=== PATIENT | female | born 1985 | race Caucasian/White ===

== ENCOUNTER 2022-02-01 20:40 | Inpatient (IN) | payer SELFPAY ==
[~2022-02-01] VITALS: Ht 170.2 cm; Wt 80.5 kg
[~2022-02-01 20:40] MED LIST: CLARITIN 1010 MG/TAB PO; CRANBERRY400 MG PO; INDERAL 10MG10 MG PO; LEVORA-28 30 MC1 TA1 PO; PRILOSEC 20MG20 MG PO; ZANTAC 150MG T150 MG PO; ZOLOFT 50MG50 MG PO
--- NOTE | 2022-02-01 20:45 | NUR ---
2044- PT PRESENTS TO LDR COMPLAINING OF LEAKING AMNIOTIC FLUID. AMBULATORY TO ROOM LR4, CHANGED INTO GOWN.
--- NOTE | 2022-02-01 20:53 | NUR ---
2052- EFM X2 APPLIED. PT REPORTS GUSH OF FLUID AT 1930, CLEAR. SHE ALSO REPORTS HER CONTRACTIONS INTENSIFIED AT THAT TIME. SHE DENIES VAGINAL BLEEDING AND REPORTS THAT SHE IS FEELING THE BABY MOVE. PLAN OF CARE FOR SROM CHECK DISCUSSED AND QUESTIONS ANSWERED. 2099- AMNITRACE POSITIVE FOR RUPTURE OF MEMBRANES. SVE BY THIS NURSE 0-/-3. DISCUSSED WITH PT THE PLAN FOR REPEAT AND QUESTIONS ANSWERED. 2109- NURSING ADMISSION HISTORY AND ASSESSMENT COMPLETED. 2128- DR ORNELAS CALLED CHARTED, ORDERS FOR ADMISSION AND PREOP SECTION. 2144- CONSENTS SIGNED. IV START TO LEFT HAND X3 ATTEMPTS, BLOOD DRAWN FOR LAB. IV FLUIDS INFUSING. 2148- FIONA TOVAR AT BEDSIDE FOR ANESTHESIA HISTORY. ABDOMINAL PREP COMPLETED. PT ALREADY REMOVED HAIR. 2154- DR ORNELAS AT BEDSIDE AND DISCUSSES PLAN OF CARE. SHE ANSWERS PT QUESTIONS AND PROVIDES REASSURANCE.
[2022-02-01] MEDS ORDERED: BUSPAR10 MG PO (21:26)
[2022-02-01] MEDS ORDERED: ZOLOFT 100MG100 MG PO (21:26)
[2022-02-01 22:03] LABS: BASO % 0.2 % (0.0-2.0); EOS # 0.1 K/mm3 (0.0-0.7); EOS % 0.7 % (0.0-4.0); GRAN # 10.8 K/mm3 (1.4-6.5); GRAN % 70.7 % (42.2-75.2); HEMOGLOBIN 10.4 g/dl (12.5-16.0); LYMPH # 3.2 K/mm3 (1.2-3.4); LYMPH % 20.9 % (20.0-51.0); MEAN CELL VOLUME 86 fl (80.0-100.0); MEAN CORPUSCULAR HEMOGLOBIN 30 pg (27-31); MEAN CORPUSCULAR HGB CONC 34 g/dl (33.0-37.0); MEAN PLATELET VOLUME 10.9 fl (7.4-10.4); MONO # 1.1 K/mm3 (0.1-0.6); PLATELET COUNT 253 K/mm3 (130-400); RED BLOOD COUNT 3.53 M/mm3 (4.10-5.30); REDCELL DISTRIBUTION WIDTH-CV 12.3 % (11.5-14.5)
[2022-02-01 22:04] LABS: HEMATOCRIT 30.4 % (37.0-47.0)
[2022-02-01 23:35] VITALS: BP 116/76; PULSE 92
[2022-02-01 23:40] VITALS: BP 115/77; PULSE 90
[2022-02-01 23:45] VITALS: BP 103/81; PULSE 106
[2022-02-01 23:50] VITALS: BP 107/83; PULSE 98
[2022-02-01 23:55] VITALS: BP 109/77; PULSE 106
[2022-02-02] VITALS (13 sets, daily range): BP systolic 100–130; BP diastolic 58–87; PULSE 71–106; TEMP 97.7–97.8
--- NOTE | 2022-02-02 00:20 | NUR ---
0020- PT TRANSFERRED TO ROOM 210 PER BED FROM PACU. , BABY, AND BELONGINGS WITH PT. PT ORIENTED TO ROOM AND CALL LIGHTS. RECOVERY STARTED. PT PROVIDED ORAL HYDRATION, SHE DENIES NAUSEA AT THIS TIME. DISCUSSED PLAN OF CARE FOR RECOVERY AND PAIN MEDICATIONS. PT VERBALIZES UNDERSTANDING.
--- NOTE | 2022-02-02 05:20 | NUR ---
0520- IV TO SALINE LOCK. PT ASSISTED TO AMBULATE TO BATHROOM. STEADY ON HER FEET WITHOUT DIZZINESS. PYLE CATHETER REMOVED WITHOUT DIFFICULTY. PT INSTRUCTED ON AND PERFORMS PERICARE. CLEAN GOWN, PAD, AND PANTIES PROVIDED. NORMAL LOCHIA DISCUSSED. PT ASSISTED BACK TO BED AND POSITIONED FOR COMFORT. PT DENIES FURTHER NEEDS AT THIS TIME.
[2022-02-02 07:00] LABS: ALBUMIN 2.3 gm/dL (3.5-5.0); BILIRUBIN,TOTAL 0.2 mg/dL (0.2-1.2); CALCIUM 8.5 mg/dL (8.4-10.2); CREATININE, serum 0.67 mg/dL (0.57-1.11); POTASSIUM 3.9 mmol/L (3.5-4.5); TOTAL PROTEIN 5.3 gm/dL (6.2-8.1)
[2022-02-02] MEDS ORDERED: PERCOCET 325 MG1 TA2 PO (09:07)
[2022-02-02] MEDS ORDERED: IBU800 M1 PO (09:07)
--- NOTE | 2022-02-02 10:02 | NUR ---
Initial visit; Patient thanked Tooling Manager for offering congratulations and God's blessings for the of her son. Tooling Manager thanked patient for choosing [facility].
--- NOTE | 2022-02-03 09:42 | NUR ---
Initial visit attempt; Family resting, Drafter Geological left card of congratulations and God's blessings for the of their son.
[2022-02-03 10:00] VITALS: BP 146/85; PULSE 67; TEMP 98.8
--- NOTE | 2022-02-03 11:33 | NUR ---
1040DISCHARGE INSTRUCTIONS REVIEWED WITH PATIENT. PATIENT VERBALIZED UNDERSTANDING. WILL NOTIFY NURSING STAFF WHEN READY TO LEAVE. 1120ALL PERSONAL BELONGINGS GATHERED FROM PATIENT ROOM. PATIENT LEFT AMBULATORY AND IN NO APPARENT DISTRESS. PATIENT ACCOMPANIED BY SPOUSE AND THIS RN.
== END 2022-02-03 11:20 | disposition home or self-care (01) | DRG 788 ==
LOC: LDRO 20:40 → OB 21:05 → LDR 21:05 → OB 02-02 00:20
PROVIDERS: Student in an Organized Health Care Education/Training Program; ADMIT Obstetrics & Gynecology
PROC: 10D00Z1 Extraction of Products of Conception, Low, Open Approach (ICD-10-PCS; principal; 2022-02-01)
PROC: 0HB7XZZ Excision of Abdomen Skin, External Approach (ICD-10-PCS; 2022-02-01)
DX: O34.211 Maternal care for low transverse scar from previous cesarean delivery (principal); O99.820 Streptococcus B carrier state complicating pregnancy; O99.344 Other mental disorders complicating childbirth; F41.9 Anxiety disorder, unspecified; F32.A Depression, unspecified; O69.2XX0 Labor and delivery complicated by other cord entanglement, with compression, not applicable or unspecified; O99.334 Smoking (tobacco) complicating childbirth; O99.62 Diseases of the digestive system complicating childbirth; K21.9 Gastro-esophageal reflux disease without esophagitis; Z3A.38 38 weeks gestation of pregnancy; Z37.0 Single live birth
CPT/HCPCS: J0171; J0690; J1885; J2175; J2250; J2370; J2405; J2590; J7120